=== PATIENT | male | born 1945 | race Caucasian/White ===

== ENCOUNTER 2019-03-12 20:22 | Emergency (ER) | payer MEDICARE ==
[~2019-03-12] VITALS: Ht 188 cm; Wt 54.4 kg
[2019-03-12 20:22] VITALS: BP 000/00
== END 2019-03-12 20:35 | disposition expired ==
LOC: ED 20:22
PROC: 5A12012 Performance of Cardiac Output, Single, Manual (ICD-10-PCS; principal; 2019-03-12)
DX: I46.9 Cardiac arrest, cause unspecified (principal); I25.10 Atherosclerotic heart disease of native coronary artery without angina pectoris; I10 Essential (primary) hypertension; I71.4 Abdominal aortic aneurysm, without rupture; T82.6XXA Infection and inflammatory reaction due to cardiac valve prosthesis, initial encounter; Y83.1 Surgical operation with implant of artificial internal device as the cause of abnormal reaction of the patient, or of later complication, without mention of misadventure at the time of the procedure